=== PATIENT | female | born 1955 ===

== ENCOUNTER 2017-06-16 10:32 | Outpatient (CLI) | payer OTHER ==
[~2017-06-16] VITALS: Ht 167.6 cm; Wt 108.9 kg
[2017-06-16] MEDS ORDERED: LIPO-FLAVONOID1 EACH PO (11:57)
== END 2017-06-16 10:50 | disposition home or self-care (01) ==
LOC: OFIC 805 10:32
DX: R42 Dizziness and giddiness (principal)